=== PATIENT | male | born 1985 | race African-American/Black ===

== ENCOUNTER 2022-09-05 00:59 | Emergency (ER) | payer BC ==
[~2022-09-05] VITALS: Ht 182.9 cm; Wt 72.4 kg
[2022-09-05 01:02] VITALS: BP 123/82
[2022-09-05] MEDS ORDERED: METH-653 MT (06:36)
== END 2022-09-05 06:51 | disposition home or self-care (01) ==
LOC: ER 00:59
DX: S63.682A Other sprain of left thumb, initial encounter (principal); S39.012A Strain of muscle, fascia and tendon of lower back, initial encounter; S80.12XA Contusion of left lower leg, initial encounter; V43.52XA Car driver injured in collision with other type car in traffic accident, initial encounter; Y93.89 Activity, other specified; Y92.410 Unspecified street and highway as the place of occurrence of the external cause; Z88.6 Allergy status to analgesic agent
CPT/HCPCS: 72100; 73130; 73590; 99284

== ENCOUNTER 2022-09-07 12:12 | Emergency (ER) | payer BC ==
[~2022-09-07] VITALS: Ht 167.6 cm; Wt 89.0 kg
[~2022-09-07 12:12] MED LIST: METH-653 MT
[2022-09-07 14:30] VITALS: BP 122/69
[2022-09-07] MEDS ORDERED: HYDROCODONE/ACETAMINOPHEN 5/325MG TABLET PO ONE (14:30)
[2022-09-07] MEDS ORDERED: NAPR-681 MT (16:13)
== END 2022-09-07 16:23 | disposition home or self-care (01) ==
LOC: ER 12:12
DX: S92.412A Displaced fracture of proximal phalanx of left great toe, initial encounter for closed fracture (principal); Z88.6 Allergy status to analgesic agent; V49.9XXA Car occupant (driver) (passenger) injured in unspecified traffic accident, initial encounter; Y93.89 Activity, other specified; Y92.89 Other specified places as the place of occurrence of the external cause; Y99.8 Other external cause status
CPT/HCPCS: 73630; 99283; Z7610

== ENCOUNTER 2022-11-02 12:15 | Emergency (ER) | payer BC ==
[~2022-11-02] VITALS: Ht 185.4 cm; Wt 79.0 kg
[~2022-11-02 12:15] MED LIST changes: +NAPR-681 MT
[2022-11-02 12:24] VITALS: BP 96/64
[2022-11-02] MEDS ORDERED: DOXYCYCLINE HYCLATE 100MG CAPSULE PO ONE (13:45)
[2022-11-02] MEDS ORDERED: ACETAMINOPHEN 325MG TABLET PO ONE (13:45)
[2022-11-02] MEDS ORDERED: LIDOCAINE HCL/PF 1% 10 MG/ML 5ML VIAL INFIL ONE (13:45)
[2022-11-02] MEDS ORDERED: AMOXICILLIN/POTASSIUM CLAVULANATE 875/125MG TAB PO ONE (13:45)
[2022-11-02] MEDS ORDERED: DOXY-326 MT (15:30)
== END 2022-11-02 15:51 | disposition home or self-care (01) ==
LOC: ER 12:15
DX: L02.512 Cutaneous abscess of left hand (principal)
CPT/HCPCS: 10060; 73130; 99283; J3490; Z7610

== ENCOUNTER 2023-04-22 06:51 | Emergency (ER) | payer BC ==
[~2023-04-22] VITALS: Ht 182.9 cm; Wt 66.2 kg
[~2023-04-22 06:51] MED LIST changes: +DOXY-456 MT
[2023-04-22 07:02] VITALS: O2SAT 100
[2023-04-22 07:27] LABS: CHLORIDE 109 mEq/L (98-107)
[2023-04-22 07:32] LABS: BASOPHILS % 0.5 % (0.0-2.0); EOSINOPHILS % 4.2 % (0.0-5.0); HEMATOCRIT. 45.2 % (42.0-52.0); HEMOGLOBIN. 15.2 g/dL (14.0-18.0); LYMPHOCYTES % 25.2 % (20.0-50.0); MEAN CORPUSCULAR HEMOGLOBIN 28.3 pg (28.0-32.0); MEAN PLATELET VOLUME 8.4 fl (7.4-10.4); MONOCYTES % 11.1 % (2.0-8.0); PLATELET 306 x1000/uL (130-400); RED BLOOD CELL COUNT 5.38 mill/uL (4.7-6.1); RED CELL DISTRIBUTION WIDTH 12.8 % (11.6-14.6)
[2023-04-22 09:25] LABS: CLARITY URINE CLEAR (CLEAR); COLOR URINE YELLOW (YELLOW); PH URINE 6.5 (4.5-8.0); SPECIFIC GRAVITY URINE 1.033 (1.005-1.030)
[2023-04-22 09:26] LABS: KETONES URINE TRACE (NEGATIVE); LEUKOCYTE ESTERASE URINE NEGATIVE (NEGATIVE); NITRITE URINE NEGATIVE (NEGATIVE); OCCULT BLOOD URINE NEGATIVE (NEGATIVE); PROTEIN URINE TRACE (NEGATIVE)
[2023-04-22] MEDS ORDERED: IMOD MT (09:33)
[2023-04-22] MEDS ORDERED: ONDANSETRON 4MG ODT PO ONE (09:45)
[2023-04-22 10:45] VITALS: BP 122/78; PULSE 88; RESP 18; TEMP 98.2
== END 2023-04-22 11:42 | disposition home or self-care (01) ==
LOC: ER 06:51
DX: R10.13 Epigastric pain (principal)
CPT/HCPCS: 99283; 80053; 81003; 83690; 85025; 36415; Q0162

== ENCOUNTER 2023-09-21 08:32 | Emergency (ER) | payer BC ==
[~2023-09-21] VITALS: Ht 182.9 cm; Wt 79.0 kg
[~2023-09-21 08:32] MED LIST changes: +IMOD MT
[2023-09-21 09:07] VITALS: O2SAT 100
[2023-09-21 09:29] LABS: BASOPHILS % 0.8 % (0.0-2.0); EOSINOPHILS % 0.8 % (0.0-5.0); HEMATOCRIT. 43.4 % (42.0-52.0); HEMOGLOBIN. 14.4 g/dL (14.0-18.0); MEAN CORPUSCULAR HEMOGLOBIN 28.5 pg (28.0-32.0); MEAN CORPUSCULAR HGB CONC 33.3 g/dL (31.0-37.0); MEAN CORPUSCULAR VOLUME 85.8 fL (80.0-94.0); MEAN PLATELET VOLUME 8.1 fl (7.4-10.4); MONOCYTES % 12.5 % (2.0-8.0); NEUTROPHILS % 70.9 % (40.0-76.0); PLATELET 283 x1000/uL (130-400); RED BLOOD CELL COUNT 5.06 mill/uL (4.7-6.1); RED CELL DISTRIBUTION WIDTH 12.2 % (11.6-14.6); WHITE BLOOD COUNT 3.7 x1000/uL (4.5-11.0)
[2023-09-21 09:59] LABS: ALANINE AMINOTRANSFERASE < 7 IU/L (10-49); ALBUMIN 4.2 g/dL (3.2-4.8); ASPARTATE AMINOTRANSFERASE 12 IU/L (<34); BILIRUBIN TOTAL 0.7 mg/dL (0.1-1.0); CALCIUM 8.8 mg/dL (8.7-10.4); CARBON DIOXIDE 27 mEq/L (21-32); CHLORIDE 104 mEq/L (98-107); GLUCOSE 88 mg/dL (70-105); POTASSIUM 3.8 mEq/L (3.5-5.1); PROTEIN TOTAL 7.9 g/dL (6.0-8.3); SODIUM 136 mEq/L (136-145); UREA NITROGEN BLOOD 12 mg/dL (9-23)
[2023-09-21] MEDS ORDERED: DOCU-138 MT (10:54)
[2023-09-21 11:23] VITALS: BP 128/64; PULSE 84; RESP 16; TEMP 98.6
== END 2023-09-21 11:24 | disposition home or self-care (01) ==
LOC: ER 08:59
DX: K60.2 Anal fissure, unspecified (principal)
CPT/HCPCS: 36415; 80053; 85025; 99283